=== PATIENT | female | born 1975 | race Caucasian/White ===

== ENCOUNTER 2024-12-21 10:24 | Day surgery (SDC) | payer MEDICARE, MEDICAID ==
[2024-12-21] VITALS (15 sets, daily range): BP systolic 94–118; BP diastolic 56–76; PULSE 56–96; RESP 12–26; TEMP 97.5; O2SAT 91–99
[~2024-12-21] VITALS: Ht 170.2 cm; Wt 58.5 kg
[~2024-12-21 10:24] MED LIST: DOXY100T2 PO; LIDO30CR TOP; ceFOXitin sod/dextrose 2g/50ml 50 ML IV ONE; ringers solution, lacted 1,000 ML IV SCH
[2024-12-21] MEDS ORDERED: morphine 4 MG/ML inj SYRINge IV PRN (10:50)
[2024-12-21] MEDS ORDERED: labetalol 20mg/4ml (5mg/ml) syringe IV PRN (10:50)
[2024-12-21] MEDS ORDERED: fentaNYL/PF 50MCG/1 ML 2ML syringe IV PRN (10:50)
[2024-12-21] MEDS ORDERED: ringers solution, lacted 1,000 ML IV SCH (10:50)
[2024-12-21] MEDS ORDERED: morphine 2 MG/ML inj. syringe IV PRN (10:50)
[2024-12-21] MEDS ORDERED: hydrALAZINE 20mg/ml inj. IV PRN (10:50)
[2024-12-21] MEDS ORDERED: BUPIVAcaine 2.5mg/ml inj 50ml vial (contains preservative) ONE (11:05)
[2024-12-21] MEDS ORDERED: LIDOcaine 1% 30ml preserv. free vial ONE (11:05)
[2024-12-21] MEDS: famotidine 20mg tablet PO ONE (11:11)
[2024-12-21] MEDS ORDERED: ceFAZolin 2gm in dextrose, iso 50 ML IV ONE (11:35)
[2024-12-21] MEDS ORDERED: sevoflurane 250ml liquid IH ONE (13:00)
[2024-12-21] MEDS ORDERED: dexamethasone sod phosphate 4mg/ml inj. ONE (13:00)
[2024-12-21] MEDS ORDERED: midazolam 1 mg/ML 2ml injection ONE (13:10)
[2024-12-21] MEDS ORDERED: fentaNYL/PF 50MCG/1 ML 2ML syringe ONE (13:10)
[2024-12-21] MEDS: BUPIVAcaine/PF 2.5 mg/ml (0.25%) 30ml vial IJ ONE (13:12)
[2024-12-21] MEDS ORDERED: LIDOcaine 2% (20mg/ml) 5ml vial ONE (13:15)
[2024-12-21] MEDS ORDERED: propofol inj 20 ML IV ONE (13:15)
[2024-12-21] MEDS ORDERED: acetaminophen 1,000mg/100ml IV 100 ML IV ONE (13:15)
[2024-12-21] MEDS ORDERED: ondansetron/PF 4mg/2ml inj ONE (13:17)
[2024-12-21] MEDS ORDERED: rocuronium 10mg/ml inj IV ONE (13:17)
[2024-12-21] MEDS ORDERED: neostigmine methylsulfate 1 MG/ML 10ml vial ONE (13:19)
[2024-12-21] MEDS ORDERED: glycopyrrolate 0.2mg/ml inj ONE (13:19)
--- NOTE | 2024-12-21 15:19 | OPERATIVE REPORT ---
Operative Report Providers to CC: BRAN ANTONIO MD ~ Date of Procedure: December 21, 2024 Pre-Operative Diagnosis: Bilateral inguinal hernia Post-Operative Diagnosis 1 cm recurrent umbilical hernia Bilateral inguinal hernias Procedure Performed 1 cm, recurrent umbilical hernia repair Robotic assisted, laparoscopic bilateral inguinal hernia repairs with mesh Surgeon: Bran Antonio MD FACS Quality Control Lab Tech None Anesthesiologist: Kevin Glass Type of Anesthesia: General Findings: 1 cm recurrent umbilical hernia Very small indirect right inguinal hernia Right femoral hernia Moderate-sized left indirect inguinal hernia Wound class I Complications None Prosthetics\Implants used: Bilateral median Dextile mesh Estimated Blood Loss: Minimal Specimen Removed: None Description of Procedure: Patient was brought to the operating room and identified by the nursing staff and the attending physician. Patient was placed supine and general anesthesia was induced. The patient's abdomen was prepped and draped in the standard sterile fashion. Preoperative antibiotics were given. Supraumbilical, midline incision was made. This was deepened down to the base of the umbilicus. There was a small, approximately 1 cm, umbilical hernia encountered. Patient had a history of umbilical hernia repair and this was consistent with a recurrence. There was some herniated preperitoneal fat that was mobilized and reduced. An 8.5 mm robotic port was placed directly through the defect under indirect visualization. Abdomen was insufflated without incident. Laparoscope was inserted and the pelvis examined. Patient was placed in Trendelenburg position. There was an obvious hernia noted on the left. This was an indirect type. No obvious hernia was noted on the right, however, patient had preoperative imaging that showed right inguinal hernia. Secondary, 8.5 mm robotic trochars were then placed in the right lateral left lateral upper abdomen just above the umbilical line. These were placed under laparoscopic guidance. Local anesthetic was infiltrated prior to their insertion. The da Ania robotic arm was docked to the patient. Instruments were guided intra-abdominally under laparoscopic visualization. Peritoneal rent was created starting at the left anterior superior iliac spine and carried across the anterior abdominal wall to the contralateral anterior superior iliac spine. The peritoneal flap was created and carried down to the symphysis pubis. Dissection was carried out bilaterally. On the left, there was an obvious indirect inguinal hernia. The sac was moderate in size. The sac was mobilized out of the indirect space and away from the left round ligament and completely reduced. On the right, there was a femoral hernia that was reduced and a very small indirect inguinal hernia. Similarly, the peritoneum was dissected away from the space. Attempts at mobilizing it off of the round ligament were unsuccessful and recurrent peritoneal rents led to the decision to divide the round ligament on the right. Further dissection continued until bilateral critical views of the myopectineal orifice were obtained. Mesh and suture was passed into the abdomen. Bilateral mesh was placed covering potential obturator, femoral, direct, and indirect hernia spaces. Mesh was anchored at Victor Hugo's ligament, rectus muscle in the midline, and out laterally just anterior to the anterior superior iliac spine. Mesh laid without wrinkles or folds. Peritoneal rent was then reapproximated with running, absorbable 2/0 V-lock suture. [place] were retrieved. Abdomen was allowed to desufflate after instruments removed and da Ania robotic arm undocked from the patient. Umbilical port was removed as were the secondary trochars. The fascia at the umbilical port site was closed with a combination of 0 Ethibond and 0 Vicryl sutures, thus repairing the recurrent umbilical hernia. Skin was closed at all sites with 4-0 Monocryl sutures in a subcuticular fashion. Sterile dressings were applied. Patient was awakened and taken to the postanesthesia care unit in stable condition. Counts repoted as correct: Yes BRAN ANTONIO MD December 21, 2024 15:19
[2024-12-21] MEDS ORDERED: ketamine 50mg/5ml syringe IV PRN (15:50)
[2024-12-21] MEDS: ondansetron/PF 4mg/2ml inj IV PRN (15:58)
[2024-12-21] MEDS: fentaNYL/PF 50MCG/1 ML 2ML syringe IV PRN (16:10)
[2024-12-21] MEDS: HYDROcodone/acetaminophen 5mg/325mg tablet PO PRN (16:30)
== END 2024-12-21 17:06 | disposition home or self-care (01) ==
LOC: PAS 10:24
PROVIDERS: ATTEND Surgery
DX: K40.20 Bilateral inguinal hernia, without obstruction or gangrene, not specified as recurrent (principal); K41.90 Unilateral femoral hernia, without obstruction or gangrene, not specified as recurrent; K42.9 Umbilical hernia without obstruction or gangrene; Z98.890 Other specified postprocedural states; Z91.040 Latex allergy status; Z91.013 Allergy to seafood; Z87.891 Personal history of nicotine dependence; Z79.899 Other long term (current) drug therapy
CPT/HCPCS: 49613; 49650; 82948; A4215; A4618; C1781; J0131; J0694; J1100; J2003; J2250; J2405; J2704; J2710; J3010; J3490; J7030; J7120; Z7506; Z7508; Z7512; Z7610